=== PATIENT | male | born 1950 ===

== ENCOUNTER 2018-01-04 08:10 | Day surgery (SDC) | payer MEDICARE ==
[2017-12-25 10:19] VITALS: BMI 30.6
[2018-01-04] MEDS ORDERED: Propofol 10 mg/ml Inj (20 ML) ONE (10:32)
[2018-01-04] MEDS ORDERED: Midazolam 2 MG/2 ML VIAL ONE (10:32)
[2018-01-04] MEDS ORDERED: ceFAZolin IV 1 gm in Dextrose 2 GM/100 ML BAG IVPB ONE (10:39)
[2018-01-04] MEDS ORDERED: Lidocaine/Epinephrine 1% 1:100000 10 ML IJ ONE (10:40)
[2018-01-04] MEDS ORDERED: Bupivacaine 0.25% 20 ML INJ IJ ONE (10:40)
[2018-01-04] MEDS ORDERED: Rocuronium 10 mg/ml (5 ml) ONE ×2 (11:53→12:23)
[2018-01-04] MEDS: HYDROmorphone 0.5 mg/0.5 ml ISec IVP PRN ×2 (14:15→14:45)
[2018-01-04 15:39] VITALS: RESP 16
[2018-01-04 17:43] VITALS: BP 121/63; PULSE 64; TEMP 16; O2SAT 98
--- NOTE | 2018-01-14 22:05 | OP ---
PROCEDURE DATE: 01/04/2018 PREOPERATIVE DIAGNOSIS: Umbilical hernia. POSTOPERATIVE DIAGNOSIS: Umbilical hernia. OPERATION PERFORMED: Robotic umbilical hernia repair and ventral hernia repair. SURGEON: Niko Mckinley MD [facility]: Daniel Patton MD DESCRIPTION OF PROCEDURE: In the operating room, the patient was identified by name and procedure laterality by vania. Time-out was taken. On the left side, Visiport was placed in the midline between the ribs and the pelvis. The superior and the inferior 8-mm was placed a handbreadth apart. This allowed good visualization of the hernia once docking of the robot and using CO2 as necessary. The omentum was pulled out of the sac, nicely exposing the defect. The peritoneum was taken down proximally and distally trying to make a sublay; however, the peritoneum easily. So, eventually a measured piece of mesh was placed. A suture was placed in the central portion. It was pulled up using a needle to the center of the defect and tacked above and below multiple times. This was done after a V-loc was placed up and down to close the defect as much as possible. This was done. Hep lock was done bilaterally using mL of 0.25 Marcaine. Looking around, there was nothing untoward. The incisions were closed with Vicryl, followed by subcuticular PDS, injected with Marcaine. The patient was taken to the recovery room in good condition. Instrument, sponge, and needle counts were correct. Niko Mckinley MD
== END 2018-01-04 17:43 | disposition home or self-care (01) ==
LOC: C.SDS 08:10
PROVIDERS: ATTEND Surgery
DX: K42.9 Umbilical hernia without obstruction or gangrene (principal)
CPT/HCPCS: 49652; 82948; 88302; C1781; J0690; J1170; J2001; J2250; J2704; J3010